=== PATIENT | male | born 2000 ===

== ENCOUNTER 2024-10-17 00:57 | Emergency (ER) | payer MEDICAID, SELFPAY ==
--- NOTE | 2024-10-17 | ECG_ITS ---
Test Reason : PALAPATIONS Blood Pressure : */* mmHG Vent. Rate : 130 BPM Atrial Rate : 130 BPM P-R Int : 138 ms QRS Dur : 84 ms QT Int : 292 ms P-R-T Axes : 76 96 42 degrees QTcB Int : 429 ms Sinus tachycardia Biatrial enlargement Rightward axis Abnormal ECG When compared with ECG of 25-Nov-2017 11:03, Vent. rate has increased by 67 bpm T wave amplitude has decreased in Lateral leads Referred By: Generic ED Physician Electronically Signed By: SHIRLEY TAYLOR
[2024-10-17 01:24] VITALS: BP 154/76; PULSE 127; RESP 16; TEMP 36.9; O2SAT 100; BMI 21.8
--- NOTE | 2024-10-17 01:43 | MHC.EDTECH ---
Mother at bedside left her contact info because she had to go. She requested to be called when it was time for patient's discharge- Lisbet [phone]
[2024-10-17 01:48] LABS: Hematocrit 44.2 % (42.0-52.0); Hemoglobin 15.7 g/dl (14.0-18.0); Imm Gran Abs Auto 0.02 X10*3/uL (0.00-0.03); Imm Gran Pct Auto 0.4 % (0.0-0.4); Lymphocytes Absolute Auto 1.5 X10*3/uL (1.2-4.9); MANUAL DIFF FLAG NO; Mean Corpuscular HGB Conc 35.5 g/dl (31.0-36.0); Mean Corpuscular Hemoglobin 31.1 pg (27.0-33.0); Mean Corpuscular Volume 87.5 fL (80.0-98.0); NRBC Abs Auto 0.000 X10*3/uL (0.0-0.012); NRBC Pct Auto 0.0 /100WBC (0.0-0.2); Platelet Count 190 X10*3/uL (160-400); Red Blood Count 5.05 X10*6/uL (4.60-5.80); White Blood Count 5.6 X10*3/uL (4.8-10.8)
[2024-10-17 02:04] LABS: Anion Gap 15 (12-20); Blood Urea Nitrogen 17 mg/dL (9-16); Calcium 9.1 mg/dL (8.4-10.2); Carbon Dioxide 25 mmol/L (22-29); Chloride 106 mmol/L (96-108); Creatinine Clr Calc Pharmacy 62.9; Estimated Glomerular Filt Rate 55; Potassium 4.1 mmol/L (3.3-5.1); Sodium 142 mmol/L (135-145)
[2024-10-17 02:14] LABS: Troponin-I High Sensitivity < 2.7 ng/L (<3.5-35.0)
[2024-10-17 03:44] VITALS: BP 122/68; PULSE 88; RESP 18; O2SAT 16
--- NOTE | 2024-10-17 05:47 | ED.ARRPALP ---
HPI - Arrhythmia/Palpitations General Chief Complaint: Arrhythmia/Palpitations Stated Complaint: elevated heart rate after smoking cannabis Time Seen by Provider: 10/17/24 04:58 Source: patient Mode of arrival: ambulatory Limitations: no limitations History of Present Illness ED Provider: Dr. Sonya Beck HPI narrative: Patient comes to the emergency room complaining of anxiety, possibly a panic attack, palpitations. Patient states that earlier today after using marijuana, he started feeling anxious and stated he felt like his was going to explode. Patient denies nausea vomiting diarrhea. Patient denies fever chills. Related Data Allergies Allergy/AdvReac Type Severity Reaction Status Date / Time No Known Allergies Allergy Verified 10/17/24 01:25 Review of Systems Review of Systems: Constitutional : No Weight loss, No Fever, No Chills, No Night Sweats, No Fatigue, No Malaise ENT/Mouth : No Hearing loss, No Ear Pain, No Nasal Congestion, No Sinus Pain, No Hoarseness, No sore throat, No Rhinorrhea, No Swallowing Difficulty Eyes: No Eye Pain, No Swelling, No Redness, No Foreign Body, No Discharge, No Vision Changes Cardiovascular : Complaining of chest pressure with the chest pain, complaining of palpitations, No SOB, No Dyspnea on Exertion, No Orthopnea Respiratory : No Cough, No Sputum, No Wheezing, No Smoke Exposure, No Dyspnea Gastrointestinal : No Nausea, No Vomiting, No Diarrhea, No Constipation, No abdominal Pain, No Hematochezia, No Melena Genitourinary : no irregular bleeding, No Dysuria, No Urinary Frequency, No Hematuria, No Urinary Incontinence, No Urgency, No Flank Pain, No Urinary Flow Changes, No Hesitancy Musculoskeletal : No joint pain, No Myalgias, No Joint Swelling Skin : No Skin Lesions, No rash Neuro : No Weakness, No Numbness, No Paresthesias, No Loss of Consciousness, No Dizziness, No Headache Psych : Complaining of anxiety, panic attack, No Depression, No SI/HI/AH/VH, No Social Issues, Heme/Lymph: No Bruising, No Bleeding,No Lymphadenopathy Endocrine : No Polyuria, No Polydipsia, No Temperature Intolerance [facility] Social History Social History Alcohol intake: current Alcohol intake frequency: holidays/special occasions only Smoked in Last 30 Days: No Use of substances other than those prescribed or required for medical reasons: Yes Substance Use Type: Marijuana Substance Use Frequency: Occasionally Advance Directives: No Do you have a plan to hurt others: No Plan Physical Exam Exam: Exam: Appearance: Alert. Oriented X3. No acute distress. Eyes: Pupils equal, round and reactive to light. ENT: Pharynx normal. Neck: Normal inspection. Neck supple. No lymph nodes noted. No crepitus CVS: Normal heart rate and rhythm. Pulses normal. Normal S1 and S2 Respiratory: No respiratory distress. Breath sounds normal. No Wheezing. No rales Abdomen: Soft and nontender. No rigidity. No distention. Skin: Skin warm and dry. Normal skin color. Normal skin turgor. Extremities: No lower extremity edema. No Lacerations. No Rash Neuro: Oriented X 3. No motor deficit. No sensory deficit. Moving all extremities. No slurred speech. CN 2 through 12 grossly intact Psych: calm, cooperative, normal affect Vital Signs: Vital Signs: Last Vital Signs Temp 98.4 F 10/17/24 01:24 Pulse 92 10/17/24 05:52 Resp 18 10/17/24 05:52 BP 111/58 L 10/17/24 05:52 Pulse Ox 97 10/17/24 05:52 O2 Del Method Room Air 10/17/24 03:44 BMI result Body Mass Index 21.8 Course Course Course Narrative: Patient reports anxiety, palpitations, chest pressure after smoking marijuana. On arrival to the ED, patient feeling a bit better. Patient denies cocaine use. All of patient's labs and imaging pending Patient denies SI or HI, denies alcohol abuse Medications Administered Generic Name Dose Route Start Last Admin Trade Name Freq PRN Reason Stop Dose Admin Sodium Chloride 2,000 mls @ 999 mls/hr 10/17/24 05:35 10/17/24 06:29 Ns IVCONT 10/17/24 07:35 999 mls/hr .Q2H1M ONE Administration Medical Decision Making Medical Decision Making [facility] Narrative: My interpretation of labs: No significant abnormality in patient's hematology . Patient's chemistry shows a creatinine of 1.58. To patient's knowledge, he has never been told that he has any issues with his kidneys, patient denies any recent episodes of nausea vomiting or diarrhea. Patient receiving IV fluids, then we will recheck labs. Patient agrees with plan. At this time, patient no longer having anxiety palpitations or chest pressure. Differential Diagnosis Differential Diagnoses: The differential diagnosis associated with the presentation includes (Anxiety, polysubstance abuse, dehydration) Admission/Observation Consideration of admission/observation: Escalation of care including admission/observation considered (Given patient's elevated creatinine, observation was considered.) Lab Data MDM Lab Attestation statement: I reviewed the patient's lab results. 10/17/24 01:43 10/17/24 01:43 Labs: Lab Results 10/17/24 Range/Units 01:43 WBC 5.6 (4.8-10.8) X10*3/uL RBC 5.05 (4.60-5.80) X10*6/uL Hgb 15.7 (14.0-18.0) g/dl Hct 44.2 (42.0-52.0) % MCV 87.5 (80.0-98.0) fL MCH 31.1 (27.0-33.0) pg MCHC 35.5 (31.0-36.0) g/dl RDW 11.9 (11.0-16.0) % Plt Count 190 (160-400) X10*3/uL MPV 11.5 (9.4-12.4) fL Immature Gran % (Auto) 0.4 (0.0-0.4) % Neut % (Auto) 63.4 (45-73) % Lymph % (Auto) 27.4 (20-40) % [place] % (Auto) 6.6 (2-11) % Eos % (Auto) 1.8 (0-4) % Baso % (Auto) 0.4 (0-2) % Lymph # (Auto) 1.5 (1.2-4.9) X10*3/uL [place] # (Auto) 0.4 (0.1-1.2) X10*3/uL Eos # (Auto) 0.1 (0.0-0.4) X10*3/uL Baso # (Auto) 0.0 (0.0-0.2) X10*3/uL Abs Immat Gran (auto) 0.02 (0.00-0.03) X10*3/uL Absolute Neuts (auto) 3.5 (2.0-8.3) x10*3/uL Absolute Nucleated RBC 0.000 (0.0-0.012) X10*3/uL Nucleated RBC % (auto) 0.0 (0.0-0.2) /100WBC Sodium 142 (135-145) mmol/L Potassium 4.1 (3.3-5.1) mmol/L Chloride 106 (96-108) mmol/L Carbon Dioxide 25 (22-29) mmol/L Anion Gap 15 (12-20) BUN 17 H (9-16) mg/dL Creatinine 1.58 H (0.5-1.4) mg/dL Estim Creat Clear Calc 62.9 Estimated GFR 55 Random Glucose 121 H (60-115) mg/dL Calcium 9.1 (8.4-10.2) mg/dL Troponin I High Sens < 2.7 (<3.5-35.0) ng/L Independent Interpretation I performed an independent interpretation of an: EKG Interpretation: My interpretation of EKG: Sinus tachycardia, heart rate 130, no ST segment depression or elevation, no T-wave inversion, QTC 429 Critical Care Time Critical Care Time Critical Care Time: Yes Total Critical Care Time: 45 Attestation: I have personally provided critical care time. Time includes review of lab data, radiology results, discussion with consultants, and monitoring for potential decompensation. Intervention performed as documented. Discharge Plan Discharge Clinical Impression: Palpitations, Anxiety, LISSET (acute kidney injury) Patient Disposition: Home, Self-Care Instructions: Acute Kidney Injury (DC), Anxiety (ED), Heart Palpitations (ED) Additional Instructions: Please follow-up with your primary care physician tomorrow. If you have any worsening or new symptoms, please return to the emergency room or call 911 Print Language: Danish
[2024-10-17 05:52] VITALS: BP 111/58; PULSE 92; RESP 18; O2SAT 97
[2024-10-17 07:32] VITALS: BP 107/57; PULSE 82; RESP 14; TEMP 36.7; O2SAT 99
--- NOTE | 2024-10-17 08:28 | PC.NURSE ---
Pt resting quietly in room; vss; SR per tele with no ectopy; IVF's infused per orders; pt denies feeling palpitations at this time
[2024-10-17 08:36] LABS: Anion Gap 9 (12-20); Blood Urea Nitrogen 18 mg/dL (9-16); Carbon Dioxide 25 mmol/L (22-29); Chloride 112 mmol/L (96-108); Creatinine Clr Calc Pharmacy 94.7; Estimated Glomerular Filt Rate > 60; Potassium 4.2 mmol/L (3.3-5.1); Sodium 142 mmol/L (135-145)
[2024-10-17 08:48] LABS: Calcium 8.2 mg/dL (8.4-10.2)
[2024-10-17 10:08] VITALS: BP 111/73; PULSE 77; RESP 14; TEMP 36.7; O2SAT 100
[2024-10-17 11:38] VITALS: BP 116/65; PULSE 78; RESP 17; TEMP 36.3; O2SAT 100
== END 2024-10-17 11:39 | disposition home or self-care (01) ==
PROVIDERS: Emergency Medicine; Emergency Provider Emergency Medicine Emergency Medical Services
DX: R00.2 Palpitations (principal); F41.9 Anxiety disorder, unspecified; N17.9 Acute kidney failure, unspecified; R07.9 Chest pain, unspecified; R00.0 Tachycardia, unspecified
CPT/HCPCS: 36415; 80048; 84484; 85025; 93005; 96360; 96361; 99283; 99284; 99285

== ENCOUNTER → 2024-10-17 01:06 | Outpatient (BNV) | payer SELFPAY | PROVIDERS: Emergency Provider Emergency Medicine Emergency Medical Services; Visit Provider Internal Medicine | DX: I51.7 Cardiomegaly (principal); R00.0 Tachycardia, unspecified | CPT/HCPCS: 93010 ==